=== PATIENT | male | born 1940 | race Caucasian/White ===

== ENCOUNTER → 2021-12-04 07:49 | Outpatient (BNVA) | payer MEDICARE, SELFPAY | PROVIDERS: PCP Internal Medicine; Visit Provider Nurse Practitioner Family | DX: M17.0 Bilateral primary osteoarthritis of knee (principal); M79.651 Pain in right thigh | CPT/HCPCS: 99202 ==

== ENCOUNTER 2022-01-14 12:05 | Outpatient (REF) | payer MEDICARE, SELFPAY ==
--- NOTE | ~2022-01-14 | XR_ITS ---
EXAMINATION: XR AP PELVIS AND RIGHT FEMUR CLINICAL INFORMATION: Pain. COMPARISON: None. TECHNIQUE: AP pelvis one view. Right femur 2 views. FINDINGS: AP PELVIS: There is normal symmetry of bilateral hip joints and SI joints. No visible acute fracture, dislocation or subluxation seen. No aggressive lytic or sclerotic process seen. The soft tissues are normal. RIGHT FEMUR: There is an old healed mid to distal diaphyseal fracture with mild deformity and a large enthesophyte along lateral fracture site. No new fracture seen. There is no lytic process. The soft tissues are normal. XR/XR pelvis 1-2V IMPRESSION: Old healed right mid diaphyseal fracture with mild deformity and enlarged enthesophyte along the lateral femur. No recurrent fracture or bony abnormality. Unremarkable AP pelvis exam.
--- NOTE | ~2022-01-14 | XR_ITS ---
EXAMINATION: XR KNEE STANDING, BILATERAL XR KNEE, RIGHT XR KNEE, LEFT XR HIP, RIGHT XR PELVIS CLINICAL INDICATION: Pain. COMPARISON: Previous exam dated 05/29/2021. TECHNIQUE: Standing image of the knees with 2 detailed views of the right and left knee. Single view pelvis, 2 view right femur to include the hips FINDINGS: There is severe degeneration on the right. Total loss of joint space medially and laterally. There is a moderate to large effusion. Moderate patellofemoral degeneration. Possible loose bodies. More moderate degenerative change in the left knee. There is a small effusion on the left. Meniscal calcifications are seen. Views of the femur once again demonstrate deformity in the mid femoral shaft which is likely the sequela of previous injury. No convincing evidence for an acute finding. Vascular calcifications are noted. Detailed views of the right hip show the femoral head contour to be smooth. There is some axial joint space loss. Some marginal osteophytes are noted which are mild. The pelvic image shows degeneration in the lower lumbosacral spine. XR/XR knee RT 2V IMPRESSION: Degenerative changes as described. Marked on the right knee with a moderate to large effusion and more moderate in the left knee with a small effusion. No acute finding associated with the right femur. Some degeneration in the right hip however the femoral head contour is smooth. Degenerative change in the lower lumbosacral spine. Vascular calcifications are noted.
--- NOTE | ~2022-01-14 | XR_ITS ---
EXAMINATION: XR KNEE STANDING, BILATERAL XR KNEE, RIGHT XR KNEE, LEFT XR HIP, RIGHT XR PELVIS CLINICAL INDICATION: Pain. COMPARISON: Previous exam dated 05/29/2021. TECHNIQUE: Standing image of the knees with 2 detailed views of the right and left knee. Single view pelvis, 2 view right femur to include the hips FINDINGS: There is severe degeneration on the right. Total loss of joint space medially and laterally. There is a moderate to large effusion. Moderate patellofemoral degeneration. Possible loose bodies. More moderate degenerative change in the left knee. There is a small effusion on the left. Meniscal calcifications are seen. Views of the femur once again demonstrate deformity in the mid femoral shaft which is likely the sequela of previous injury. No convincing evidence for an acute finding. Vascular calcifications are noted. Detailed views of the right hip show the femoral head contour to be smooth. There is some axial joint space loss. Some marginal osteophytes are noted which are mild. The pelvic image shows degeneration in the lower lumbosacral spine. XR/XR knee LT 2V IMPRESSION: Degenerative changes as described. Marked on the right knee with a moderate to large effusion and more moderate in the left knee with a small effusion. No acute finding associated with the right femur. Some degeneration in the right hip however the femoral head contour is smooth. Degenerative change in the lower lumbosacral spine. Vascular calcifications are noted.
--- NOTE | ~2022-01-14 | XR_ITS ---
EXAMINATION: XR AP PELVIS AND RIGHT FEMUR CLINICAL INFORMATION: Pain. COMPARISON: None. TECHNIQUE: AP pelvis one view. Right femur 2 views. FINDINGS: AP PELVIS: There is normal symmetry of bilateral hip joints and SI joints. No visible acute fracture, dislocation or subluxation seen. No aggressive lytic or sclerotic process seen. The soft tissues are normal. RIGHT FEMUR: There is an old healed mid to distal diaphyseal fracture with mild deformity and a large enthesophyte along lateral fracture site. No new fracture seen. There is no lytic process. The soft tissues are normal. XR/XR femur RT 2V IMPRESSION: Old healed right mid diaphyseal fracture with mild deformity and enlarged enthesophyte along the lateral femur. No recurrent fracture or bony abnormality. Unremarkable AP pelvis exam.
--- NOTE | ~2022-01-14 | XR_ITS ---
EXAMINATION: XR KNEE STANDING, BILATERAL XR KNEE, RIGHT XR KNEE, LEFT XR HIP, RIGHT XR PELVIS CLINICAL INDICATION: Pain. COMPARISON: Previous exam dated 05/29/2021. TECHNIQUE: Standing image of the knees with 2 detailed views of the right and left knee. Single view pelvis, 2 view right femur to include the hips FINDINGS: There is severe degeneration on the right. Total loss of joint space medially and laterally. There is a moderate to large effusion. Moderate patellofemoral degeneration. Possible loose bodies. More moderate degenerative change in the left knee. There is a small effusion on the left. Meniscal calcifications are seen. Views of the femur once again demonstrate deformity in the mid femoral shaft which is likely the sequela of previous injury. No convincing evidence for an acute finding. Vascular calcifications are noted. Detailed views of the right hip show the femoral head contour to be smooth. There is some axial joint space loss. Some marginal osteophytes are noted which are mild. The pelvic image shows degeneration in the lower lumbosacral spine. XR/XR knee standing BI IMPRESSION: Degenerative changes as described. Marked on the right knee with a moderate to large effusion and more moderate in the left knee with a small effusion. No acute finding associated with the right femur. Some degeneration in the right hip however the femoral head contour is smooth. Degenerative change in the lower lumbosacral spine. Vascular calcifications are noted.
== END 2022-01-14 12:06 | disposition home or self-care (01) ==
LOC: HO.HOSX 12:05
PROVIDERS: PCP Internal Medicine; Visit Provider Orthopaedic Surgery
DX: M17.0 Bilateral primary osteoarthritis of knee (principal); M25.559 Pain in unspecified hip; M79.651 Pain in right thigh; Z79.891 Long term (current) use of opiate analgesic
CPT/HCPCS: 72170; 73552; 73560; 73565; 99202

== ENCOUNTER → 2022-08-25 16:18 | Outpatient (BNVA) | payer MEDICARE, SELFPAY | PROVIDERS: PCP Internal Medicine; Visit Provider Anesthesiology | DX: M79.651 Pain in right thigh (principal) | CPT/HCPCS: 99212 ==

== ENCOUNTER → 2023-03-21 15:06 | Outpatient (BNVA) | payer MEDICARE, SELFPAY | PROVIDERS: PCP Internal Medicine; Visit Provider Anesthesiology | DX: M79.651 Pain in right thigh (principal); G89.29 Other chronic pain | CPT/HCPCS: 99212 ==

== ENCOUNTER 2023-12-29 11:45 | Outpatient (REF) | payer MEDICARE, SELFPAY ==
--- NOTE | ~2023-12-29 | XR_ITS ---
EXAMINATION: XR FEMUR, RIGHT CLINICAL INFORMATION: Pain. COMPARISON: Radiograph right femur 01/14/2022. TECHNIQUE: AP and lateral views of the right femur were obtained. FINDINGS: Decreased bone mineralization. Chronic fracture of the mid to distal femoral shaft with stable angulation. Chronic large exophytic osseous fragment along the anterior surface of the femur just superior to the fracture site best visualized on the lateral view. Severe degenerative osteoarthritis in the right knee. Mild to moderate degenerative osteoarthritis in the right hip. No acute osseous findings. Severe vascular calcifications. XR/XR femur RT 2V IMPRESSION: 1. Chronic fracture of the mid to distal femoral shaft with stable angulation. 2. Chronic quite large exophytic osseous fragment along the anterior surface of the femur just superior to the fracture site. 3. Severe degenerative osteoarthritis in the right knee. 4. No acute osseous findings.
== END 2023-12-29 11:46 | disposition home or self-care (01) ==
LOC: HO.HOSX 11:45
PROVIDERS: Visit Provider Orthopaedic Surgery
DX: M79.651 Pain in right thigh (principal)
CPT/HCPCS: 73552; 99212

== ENCOUNTER 2023-12-29 14:31 | Outpatient (AMB) | payer MEDICARE, SELFPAY ==
--- NOTE | 2023-12-29 14:33 | MHC.OFFVIS ---
Intake Intake Visit Reasons: Newprob-right femur-possible fracture? Intake Note: Matt is an 83 year old male who presents today with complaints of right thigh pain, he believes that he has a femur fracture. He was last seen with pain mgmt who discussed opiate therapy given his age. Patient reports that he fracrtured his leg in the 60s. About 1 year ago he developed pain in the thigh. He is wondering if he will need surgery. Allergies No Known Allergies Allergy (Verified 03/21/23 15:15) HPI Newprob-right femur-possible fracture? HPI Details This is an 83 yo with right thigh pain. He states he has pain with activity and at rest and feels it has worsened over the past year. He describes intractable pain and is taking 30 mg Morphine/day as well as percocet and a recent h/o taking fentanyl for this pain. PENDING SALE TO [facility] Medical History (Updated 12/28/21 @ 13:08 by Alondra Mclain NP) Smoker Hypercholesterolemia Hypertension CAD (coronary artery disease) Arthritis Depression Review of Systems Const All systems reviewed & are unremarkable except as noted in HPI and below Physical Exam Const General: no acute distress, alert and awake Orientation/consciousness: patient oriented x3 HEENT Head: Yes normocephalic and Yes atraumatic Eyes EOM: EOMs intact bilaterally Resp Effort & Inspection: normal respiratory effort and able to speak in complete sentences Cardio Jugular venous distension: no JVD Skin General skin exam: turgor normal Rashes: no rashes Neuro General: patient oriented x3 Extrem Other: Right thigh with mildly prominenet bony excrescence over the anterolateral mid-distal thigh. Mild ttp. minimal gait antalgia. Psych Appearance: grossly normal Affect: normal affect Attitude: cooperative Results Reviewed Results Reviewed: I personally reviewed relevant radiographs. Unchanged appearance of healed right femoral shaft fracture with post traumatic remodeling and a bony excrescence over the anterolateral aspect of the femur Assessment & Plan Assessment & Plan (1) Right thigh pain: Code(s): M79.651 - Pain in right thigh Plan: This is a 83 yo taking narcotics for a chronic problem that does not appear to have changed radiographically. I am at a loss for why he is taking narcotics for this. I discussed options including an MRI to assess for impending fracture. I would not consider surgery as there is a disconnect between the objective and subjective assessment. I recommend he DC narcotics and get an MRI and return to see me. He is not interested in either of those options. I cannot definitively say he doesn't have a stress reaction and impending fracture although it ishighly unlikely. I recommend cane which he does not want and he refuses the MRI. He can see pain management for possible injections. Orders: Orders XR femur RT 2V 12/29/23 M79.651 - Pain in right thigh Referrals Pain Management Referral M79.651 - Pain in right thigh Coding Level of Care Code Est Pt Level 4 (84387) Diagnoses Right thigh pain M79.651
== END 2023-12-29 15:28 | disposition home or self-care (01) ==
PROVIDERS: PCP Internal Medicine; Visit Provider Orthopaedic Surgery
DX: M79.651 Pain in right thigh (principal)
CPT/HCPCS: 99213

== ENCOUNTER 2024-01-09 08:49 | Outpatient (AMB) | payer MEDICARE, SELFPAY ==
--- NOTE | 2024-01-09 08:50 | MHC.OFFVIS ---
Intake Vital Signs 01/09/24 09:00 Height 6 ft Weight 160 lb BMI 21.7 BP 130/76 Blood Pressure Location Lt brachial Position Sitting Respiration 14 Pulse 78 Pulse Source Pulse Oximeter Pulse Oximetry (%) 94 Oxygen Delivery Method Room Air Intake Visit Reasons: Chronic leg pain Allergies No Known Allergies Allergy (Verified 01/09/24 08:59) HPI Chronic leg pain HPI Details Matt is back in my office complaining on pain in the right lower extremity. He suffered from mid shaft fracture of the right femur and developed after that Complex regional pain syndrome and enthesiopathy and adhesion formation surrounding the fracture. He takes oxycodone and hydrocodone at the same time prescribed to him by his primary care physician. He states today that neither oxycodone nor hydrocodone work for his pain although his doses are quite significant. He is taking 1 pill of 10 mg of oxycodone and 2 pills together of hydrocodone several times a day sometimes more than 6. And he denies any pain improvement from those medications. I offered again SCS [employer] for this patient. I am planning to perform long gutter lead insertion for the trial from L2 all the way down to L5 in the attempt to overcome his pain. The patient agreed to go for the psychological evaluation necessary to initiate the procedure. After psychological evaluation I will schedule him for the SCS trial. Prior: complains on pain in the right lower extremity he is suffering from severe osteoarthritis of the right knee with multiple loose bodies and complete loss of the joint space medially and laterally see complete description below.? He also also suffering from consequences of the femoral fracture on the right with enthesiopathies surrounding the fracture.? On top of that he is on opioid medications for long period of time.? He is very much interested in continuation of the opioid medications since his primary care physician is not very happy to continue his prescription.? He went for consult with Dr. Ricketts orthopedic surgeon a and the recommendations were to perform some surgery on his hip to alleviate his pain however no promises were made that the surgery will actually alleviate the patient pain, the were also an opinion that this surgery may aggravate this patient's pain. [facility] Medical History (Updated 12/28/21 @ 13:08 by Alondra Mclain NP) Smoker Hypercholesterolemia Hypertension CAD (coronary artery disease) Arthritis Depression Review of Systems Const All systems reviewed & are unremarkable except as noted in HPI and below ENT Denies Normal hearing present Neuro Denies Normal hearing present and Denies Abnormal speech present Physical Exam Vital Signs: Last Vital Signs Pulse 78 01/09/24 09:00 Resp 14 01/09/24 09:00 BP 130/76 01/09/24 09:00 Pulse Ox 94 01/09/24 09:00 Oxygen Delivery Method Room Air 01/09/24 09:00 BMI result Body Mass Index 21.7 Const General: cooperative, no acute distress and alert Orientation/consciousness: oriented to person, oriented to place and oriented to time HEENT Head: Yes normal to inspection, Yes normocephalic and Yes atraumatic Ears: hearing grossly normal bilaterally Mouth: moist mucous membranes Eyes General: appearance normal, both eyes and all related structures Eyelids: Yes eyelids normal Sclerae: sclerae normal Pupils: Equal, round and reactive pupils present EOM: EOMs intact bilaterally Neck Neck: Yes normal visual inspection Resp Effort & Inspection: normal respiratory effort, able to speak in complete sentences and audible wheezes Cardio Jugular venous distension: no JVD Palpation: other (no appreciable rhythmic abnormalities) Peripheral pulses: popliteal pulses present Neuro General: oriented to person, oriented to place, oriented to time and moves all extremities Cranial nerves: Yes Equal, round and reactive pupils present and No Normal hearing present Speech: No Abnormal speech present Gait exam (Neuro): Antalgic gait present Motor exam (neuro): 5/5 motor strength present throughout Extrem Other: Tenderness to palpation over the bony prominence in a mid lateral shaft of the right femur. No groin pain with hip range of motion. Limited but painless right knee range of motion, significant reduction in the circumference of the right knee compared to the left. Significant decrease in temperature in the right thigh compared to the left thigh. No discoloration. Severe tenderness on palpation. Right lower extremity: hip/thigh Details: tenderness Location: of the mid upper leg Location: anteromedially; no swelling, no ecchymosis and no unusual warmth and knee Details: tenderness Location: of the lateral joint line, swelling, abnormal ROM, crepitus and deformity Psych Appearance: grossly normal Mental Status: mental status grossly normal Speech and movement: Normal speech and movement present and Clear speech present Affect: normal affect Attitude: cooperative Thought process: Normal thought process present Thought content: Normal thought content present Insight: Good insight present (Psych) Judgement: Good judgement present (Psych) Assessment & Plan Assessment & Plan (1) Right thigh pain: Code(s): M79.651 - Pain in right thigh Plan: Posttraumatic deformity of the right femur. The knee x-ray looks terrible but he does not complain on knee pain. The motion however it is minimally preserved in any does not cause any discomfort in him. He is able to ambulate. We discussed possibilities of treatment. He is 82 years old and his life expectancy would be 5-10 years. Continuation of opioid medications may give him necessary comfort and prevents him from going f for surgical procedures. However at the same time chronic opioid therapy on the longer run will cause him to have more pain due to hyperalgesia. With diagnosis of Complex regional pain syndrome his a good candidate of SCS. I will be planning [employer] SCS with position of the lead in the right gutter. His primary care physician is prescribing him opioid medications. He is on exuberant doses of the opioids and he denies that opioids help his pain. In the past he was insistent that I would admit him here for the opioid program. He agreed today to try [employer] SCS. We will schedule him for psychological evaluation as soon as possible. Plan I here by testify that I spent 33 minutes in conversation with this patient as well as planning his care organizing his note and evaluating my prior records Coding Level of Care Code Est Pt Level 4 (79042) Diagnoses Right thigh pain M79.651
[2024-01-09 09:00] VITALS: BP 130/76; PULSE 78; RESP 14; O2SAT 94; BMI 21.7
== END 2024-01-09 09:23 | disposition home or self-care (01) ==
PROVIDERS: PCP Internal Medicine; Visit Provider Anesthesiology
DX: M79.651 Pain in right thigh (principal)
CPT/HCPCS: 99214

== ENCOUNTER → 2024-01-09 08:49 | Outpatient (BNVA) | payer MEDICARE, SELFPAY | PROVIDERS: PCP Internal Medicine; Visit Provider Anesthesiology | DX: M79.651 Pain in right thigh (principal) | CPT/HCPCS: 99212 ==